=== PATIENT | female | born 1965 | race Caucasian/White ===

== ENCOUNTER 2024-02-26 06:20 | Day surgery (SDC) | payer OTHER ==
[~2024-02-26] VITALS: Ht 152.4 cm; Wt 56.7 kg
[2024-02-26] MEDS ORDERED: MEPERIDINE 100 MG INJ. 100 MG/ML VIAL ONE (07:45)
[2024-02-26] MEDS ORDERED: MIDAZOLAM HCL 5 MG/5 ML VIAL ONE (07:45)
[2024-02-26 07:56] VITALS: O2SAT 100
[2024-02-26 10:45] VITALS: BP_SYST 107; PULSE 55; RESP 17
== END 2024-02-26 09:53 | disposition home or self-care (01) ==
LOC: SDS 06:20 → SMU 06:22 → SDS 09:53
PROVIDERS: ATTEND Internal Medicine
DX: Z12.11 Encounter for screening for malignant neoplasm of colon (principal); K64.8 Other hemorrhoids; Z98.891 History of uterine scar from previous surgery; Z79.899 Other long term (current) drug therapy
CPT/HCPCS: 45378; 99152; G0378; J2250; J2175